=== PATIENT | male | born 1945 | race Caucasian/White ===

== ENCOUNTER 2018-08-06 11:02 | Outpatient (CLI) | payer MEDICARE ==
[~2018-08-06] VITALS: Ht 188 cm; Wt 140.9 kg
[2018-08-06] VITALS (7 sets, daily range): BP systolic 110–136; BP diastolic 63–69
[~2018-08-06 11:02] MED LIST: ALLO100T PO; AMIT-189 PO; ASPI-1265 PO; CHOL400C8 PO; COR3.125T PO; CYA500T PO; DIAZ10TA4 PO; FENO135C PO; FURO-150 PO; GABA-338 PO; ISOS30TA PO; MEMA5TAB PO; MULT-1179 PO; NIA500ERT PO; OMEG1CAP46 PO; OMEP-84 PO; PARO30TA4 PO; POTA10TA36 PO; RANI-320 PO; RIVA20TA PO; SIMV80TA2 PO; UBID100C16 PO
[2018-08-06] MEDS ORDERED: aminophylline 250mg/10ml inj. IV PRN (12:55)
[2018-08-06] MEDS ORDERED: nitroGLYCERIN 0.4mg SUBLingual tab SL PRN (12:55)
[2018-08-06] MEDS ORDERED: regadenoson 0.4mg/5ml syringe IV PRN (12:55)
[2018-08-06] MEDS ORDERED: regadenoson 0.4mg/5ml syringe IV ONE (13:18)
== END 2018-08-06 23:59 | disposition home or self-care (01) ==
LOC: RAD 11:02
PROVIDERS: ATTEND Internal Medicine Cardiovascular Disease
DX: I25.89 Other forms of chronic ischemic heart disease (principal); I10 Essential (primary) hypertension; I25.2 Old myocardial infarction; Z98.61 Coronary angioplasty status; Z79.82 Long term (current) use of aspirin; Z79.899 Other long term (current) drug therapy
CPT/HCPCS: 78452; 93017; A9500

== ENCOUNTER 2022-10-22 13:33 | Emergency (ER) | payer MEDICARE ==
[~2022-10-22] VITALS: Ht 185.4 cm; Wt 125.0 kg
[~2022-10-22 13:33] MED LIST changes: -ALLO100T PO; +ALLO300T35 PO; -AMIT-189 PO; +ASCO-134 PO; -ASPI-1265 PO; +ASPI-611 PO; +ATOR-2 PO; +CARV6.253 PO; +CHOL100025 PO; -CHOL400C8 PO; +CIPR-429 PO; +CLON0.5T4 PO; -COR3.125T PO; -CYA500T PO; -DIAZ10TA4 PO; -FENO135C PO; +FENO135C4 PO; -FURO-150 PO; +FURO80TA3 PO; -GABA-338 PO; +GABA600T13 PO; -ISOS30TA PO; +ISOS30TA9 PO; +LACT1CAP74 PO; +MEMA10TA56 PO; -MEMA5TAB PO; +METF-438 PO; -MULT-1179 PO; -NIA500ERT PO; +NIAC1CAP PO; -OMEP-84 PO; +OMEP20CA16 PO; -PARO30TA4 PO; +PARO30TA97 PO; +POTA10TA PO; -POTA10TA36 PO; -RANI-320 PO; -RIVA20TA PO; -SIMV80TA2 PO; -UBID100C16 PO
[2022-10-22 13:53] VITALS: BP 122/81
[2022-10-22 14:34] LABS: BASOPHILS % (AUTO) 0.6 % (0-1); EOSINOPHILS # (AUTO) 0.3 X10'3 (0-0.9); EOSINOPHILS % (AUTO) 3.6 % (0-6); HEMATOCRIT 45.1 % (42.0-52.0); LYMPHOCYTES # (AUTO) 2.1 X10'3 (1.1-4.8); LYMPHOCYTES % (AUTO) 26.6 % (21-51); MEAN CORPUSCULAR HEMOGLOBIN 29.7 PG (27.0-31.0); MEAN CORPUSCULAR HGB CONC 33.2 g/dL (33.0-36.5); MEAN CORPUSCULAR VOLUME 89.4 FL (78-98); MEAN PLATELET VOLUME 7.8 FL (7.4-10.4); MONOCYTES # (AUTO) 0.6 X10'3 (0-0.9); MONOCYTES % (AUTO) 7.9 % (2-12); NEUTROPHILS # (AUTO) 4.7 X10'3 (1.8-7.7); NEUTROPHILS % (AUTO) 61.3 % (42-75); PLATELET COUNT 233 X10'3 (140-440); RED BLOOD COUNT 5.04 X10'6 (4.70-6.10); RED CELL DISTRIBUTION WIDTH 14.5 % (11.5-14.5); WHITE BLOOD COUNT 7.7 X10'3 (4.5-11.0)
[2022-10-22 14:57] LABS: ALANINE AMINOTRANSFERASE 26 U/L (12-78); ALBUMIN/GLOBULIN RATIO 0.7 (1.1-1.5); ALKALINE PHOSPHATASE 69 IU/L (46-116); ANION GAP 10 (8-16); ASPARTATE AMINO TRANSFERASE 20 U/L (10-37); BILIRUBIN,TOTAL 0.6 MG/DL (0.1-1.0); BLOOD UREA NITROGEN 14 MG/DL (7-18); BUN/CREATININE RATIO 10.5 (5.4-32.0); CHLORIDE 105 MMOL/L (99-107); CREATININE 1.33 MG/DL (0.60-1.10); GLUCOSE 157 MG/DL (70-104); POTASSIUM 3.9 MMOL/L (3.5-5.1); SODIUM 142 MMOL/L (135-145); TOTAL CARBON DIOXIDE 26.7 MMOL/L (24-32); TOTAL PROTEIN 7.1 G/DL (6.4-8.2); eGFR 52 ML/MIN
== END 2022-10-22 16:56 | disposition home or self-care (01) ==
LOC: ER 13:33
DX: R07.89 Other chest pain (principal); K21.9 Gastro-esophageal reflux disease without esophagitis; I50.9 Heart failure, unspecified; J45.909 Unspecified asthma, uncomplicated; E11.9 Type 2 diabetes mellitus without complications; Z88.0 Allergy status to penicillin; Z91.041 Radiographic dye allergy status
CPT/HCPCS: 36415; 71045; 80053; 83880; 84484; 85025; 93005; 99285

== ENCOUNTER 2023-01-14 11:39 | Emergency (ER) | payer MEDICARE ==
[~2023-01-14] VITALS: Ht 188 cm; Wt 140.0 kg
[2023-01-14 14:32] LABS: BASOPHILS % (AUTO) 0.5 % (0-1); EOSINOPHILS # (AUTO) 0.3 X10'3 (0-0.9); EOSINOPHILS % (AUTO) 4.9 % (0-6); HEMATOCRIT 40.4 % (42.0-52.0); HEMOGLOBIN 13.3 g/dl (14.0-17.9); LYMPHOCYTES # (AUTO) 1.5 X10'3 (1.1-4.8); LYMPHOCYTES % (AUTO) 27.7 % (21-51); MEAN CORPUSCULAR HEMOGLOBIN 29.8 PG (27.0-31.0); MEAN CORPUSCULAR HGB CONC 32.9 g/dL (33.0-36.5); MEAN CORPUSCULAR VOLUME 90.4 FL (78-98); MEAN PLATELET VOLUME 8.2 FL (7.4-10.4); MONOCYTES # (AUTO) 0.6 X10'3 (0-0.9); MONOCYTES % (AUTO) 10.2 % (2-12); NEUTROPHILS # (AUTO) 3.1 X10'3 (1.8-7.7); NEUTROPHILS % (AUTO) 56.7 % (42-75); PLATELET COUNT 224 X10'3 (140-440); RED BLOOD COUNT 4.48 X10'6 (4.70-6.10); RED CELL DISTRIBUTION WIDTH 15.2 % (11.5-14.5); WHITE BLOOD COUNT 5.5 X10'3 (4.5-11.0)
[2023-01-14 14:44] LABS: APTT 28 SECONDS (22-32)
[2023-01-14 14:45] LABS: ALANINE AMINOTRANSFERASE 27 U/L (12-78); ALBUMIN 2.7 G/DL (3.4-5.0); ALBUMIN/GLOBULIN RATIO 0.6 (1.1-1.5); ALKALINE PHOSPHATASE 56 IU/L (46-116); ANION GAP 7 (8-16); ASPARTATE AMINO TRANSFERASE 30 U/L (10-37); BILIRUBIN,TOTAL 0.5 MG/DL (0.1-1.0); BLOOD UREA NITROGEN 17 MG/DL (7-18); BUN/CREATININE RATIO 14.2 (10.0-20.0); CALCIUM 10.4 MG/DL (8.5-10.1); CHLORIDE 106 MMOL/L (99-107); GLUCOSE 147 MG/DL (70-104); POTASSIUM 3.8 MMOL/L (3.5-5.1); SODIUM 143 MMOL/L (135-145); TOTAL CARBON DIOXIDE 29.8 MMOL/L (24-32); TOTAL PROTEIN 7.1 G/DL (6.4-8.2); eGFR 59 ML/MIN
[2023-01-14 14:53] LABS: MAGNESIUM 2.2 MG/DL (1.5-2.4)
[2023-01-14 15:54] VITALS: BP 114/72
--- NOTE | 2023-01-14 17:26 | NUR ---
Called patient to let her know patient has discharge order now. Left a voicemail message to her about picking up the patient
--- NOTE | 2023-01-14 17:43 | NUR ---
Second attempt to call the . Left a voicemail again letting her know patient will wait for him at the lobby
--- NOTE | 2023-01-14 18:24 | NUR ---
When I made rounds not too long ago, patient no longer in his room. A staff member discharge my patient. Patient left without an IV anymore. Patient was already given discharge instructions at earlier time
== END 2023-01-14 18:26 | disposition home or self-care (01) ==
LOC: ER 11:40
DX: R07.9 Chest pain, unspecified (principal); I11.9 Hypertensive heart disease without heart failure; K21.9 Gastro-esophageal reflux disease without esophagitis; E11.9 Type 2 diabetes mellitus without complications; Z88.0 Allergy status to penicillin; Z88.8 Allergy status to other drugs, medicaments and biological substances; Z79.899 Other long term (current) drug therapy; Z79.1 Long term (current) use of non-steroidal anti-inflammatories (NSAID); Z79.2 Long term (current) use of antibiotics
CPT/HCPCS: 36415; 71045; 80053; 83735; 83880; 84484; 85025; 85610; 85730; 93005; 99285

== ENCOUNTER 2023-12-20 17:58 | Emergency (ER) | payer MEDICARE ==
[~2023-12-20] VITALS: Ht 188 cm; Wt 136.4 kg
[~2023-12-20 17:58] MED LIST changes: +POTA-218 PO; -POTA10TA PO
[2023-12-20 18:17] VITALS: TEMP 98.9
[2023-12-20 19:03] LABS: BASOPHILS # (AUTO) 0.1 X10'3 (0-0.2); BASOPHILS % (AUTO) 0.7 % (0-1); EOSINOPHILS # (AUTO) 0.2 X10'3 (0-0.9); EOSINOPHILS % (AUTO) 2.6 % (0-6); HEMATOCRIT 41.4 % (42.0-52.0); HEMOGLOBIN 13.7 g/dl (14.0-17.9); LYMPHOCYTES # (AUTO) 1.8 X10'3 (1.1-4.8); MEAN CORPUSCULAR HEMOGLOBIN 27.9 PG (27.0-31.0); MEAN CORPUSCULAR VOLUME 84.7 FL (78-98); MEAN PLATELET VOLUME 8.6 FL (7.4-10.4); MONOCYTES # (AUTO) 0.6 X10'3 (0-0.9); MONOCYTES % (AUTO) 7.2 % (2-12); NEUTROPHILS # (AUTO) 5.3 X10'3 (1.8-7.7); NEUTROPHILS % (AUTO) 66.5 % (42-75); PLATELET COUNT 277 X10'3 (140-440); RED BLOOD COUNT 4.89 X10'6 (4.70-6.10); RED CELL DISTRIBUTION WIDTH 15.6 % (11.5-14.5)
[2023-12-20 19:12] LABS: ALBUMIN 2.7 G/DL (3.4-5.0); ANION GAP 9 (8-16); BLOOD UREA NITROGEN 17 MG/DL (7-18); BUN/CREATININE RATIO 12.8 (10.0-20.0); CALCIUM 9.2 MG/DL (8.5-10.1); CHLORIDE 100 MMOL/L (99-107); CREATININE 1.33 MG/DL (0.60-1.10); GLUCOSE 187 MG/DL (70-104); POTASSIUM 3.9 MMOL/L (3.5-5.1); SODIUM 137 MMOL/L (135-145); TOTAL CARBON DIOXIDE 28.1 MMOL/L (24-32); eCRCL 54 ML/MIN; eGFR 52 ML/MIN
[2023-12-20 20:19] LABS: BILIRUBIN,URINE NEGATIVE (Neg); CLARITY,URINE CLOUDY (Clear); COLOR,URINE YELLOW (Yellow); GLUCOSE, URINE NEGATIVE (Neg); KETONES,URINE NEGATIVE (Neg); LEUKOCYTE ESTERASE ,URINE LARGE (Neg); NITRITES, URINE NEGATIVE (Neg); OCCULT BLOOD,URINE SMALL (Neg); PROTEIN,URINE NEGATIVE (Neg)
[2023-12-20 20:26] LABS: UA COLLECTION TYPE FOLEY CATH
[2023-12-20 20:33] LABS: BACTERIA,URINE 2+ /HPF (Neg); RBC,URINE 0-2 /HPF (0-2); WBC,URINE TNTC /HPF (0-4)
[2023-12-20 20:35] LABS: MUCUS STRANDS NONE SEEN /LPF (Neg); SQUAMOUS EPITHELIAL CELL,UR FEW /LPF (FEW)
[2023-12-20] MEDS ORDERED: CIPR750T14 PO (21:04)
[2023-12-20 21:07] VITALS: PULSE 68
[2023-12-20] MEDS: CefTRIAXone 2gm/D5W 50ml BAG 50 ML IV ONE (21:07)
[2023-12-20 21:42] VITALS: BP 128/83; RESP 16; O2SAT 97
== END 2023-12-20 22:05 | disposition home or self-care (01) ==
LOC: ER 17:59
DX: N39.0 Urinary tract infection, site not specified (principal); I11.0 Hypertensive heart disease with heart failure; J45.909 Unspecified asthma, uncomplicated; K21.9 Gastro-esophageal reflux disease without esophagitis; E11.9 Type 2 diabetes mellitus without complications; Z88.0 Allergy status to penicillin; Z88.8 Allergy status to other drugs, medicaments and biological substances; Z79.899 Other long term (current) drug therapy; Z79.82 Long term (current) use of aspirin
CPT/HCPCS: 36415; 80048; 81001; 85025; 87077; 87088; 87186; 96365; 96366; 99284; J0696; A4314